=== PATIENT | male | born 1995 | race African-American/Black ===

== ENCOUNTER 2021-07-25 11:38 | Emergency (ER) | payer MEDICAID, OTHER ==
[~2021-07-25] VITALS: Ht 185.4 cm; Wt 77.1 kg
[2021-07-25 11:49] VITALS: BP 138/72
== END 2021-07-25 12:39 | disposition left against medical advice (07) ==
LOC: ER 11:38
DX: R51.9 Headache, unspecified (principal); R05.9 Cough, unspecified; R09.89 Other specified symptoms and signs involving the circulatory and respiratory systems; Z53.21 Procedure and treatment not carried out due to patient leaving prior to being seen by health care provider